=== PATIENT | female | born 2000 | race Caucasian/White ===

== ENCOUNTER 2019-02-13 02:32 | Emergency (ER) | payer OTHER ==
[~2019-02-13] VITALS: Ht 165.1 cm; Wt 48.6 kg
[2019-02-13 05:48] VITALS: BP 126/76; PULSE 76; TEMP 98.1
== END 2019-02-13 05:49 | disposition home or self-care (01) ==
LOC: COL.ER 02:32
DX: F07.81 Postconcussional syndrome (principal); R40.2412 Glasgow coma scale score 13-15, at arrival to emergency department; W19.XXXA Unspecified fall, initial encounter; Y92.009 Unspecified place in unspecified non-institutional (private) residence as the place of occurrence of the external cause